=== PATIENT | male | born 1990 | race Caucasian/White ===

== ENCOUNTER 2017-07-19 02:28 | Emergency (ER) | payer OTHER ==
[2017-07-19] MEDS ORDERED: IBUPROFEN 400 MG TABLET (FP) PO ONE ×2 (03:03→03:20)
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
[2017-07-19 03:06] VITALS: BP 126/87; PULSE 86; TEMP 98.7
[2017-07-19 03:14] VITALS: BMI 23.7
== END 2017-07-19 03:59 | disposition home or self-care (01) ==
LOC: JER 02:28
DX: S80.00XA Contusion of unspecified knee, initial encounter (principal); Y93.89 Activity, other specified; Y35.891A Legal intervention involving other specified means, law enforcement official injured, initial encounter; Y92.410 Unspecified street and highway as the place of occurrence of the external cause; Y99.0 Civilian activity done for income or pay
CPT/HCPCS: 99281-25

== ENCOUNTER 2017-10-10 01:00 | Emergency (ER) | payer OTHER ==
--- NOTE | 2017-10-10 01:33 | PDOC ---
Medical Decision Making - Medical Decision Making 10/10/17 01:33 Pt seen by Midlevel Provider under my direct supervision Ancillary studies reviewed I agree with plan as outlined by Midlevel Provider 10/11/17 06:43 *DC/Admit/Observation/Transfer Diagnosis at time of Disposition: Wrist pain, left - Discharge Dispostion Disposition: HOME - Prescriptions Prescriptions: Ibuprofen [Motrin -] 600 mg PO QID #20 tablet - Referrals Referrals: Ancelmo Coelho MD [Staff Physician] - - Patient Instructions Printed Discharge Instructions: DI for Wrist Pain Additional Instructions: rest ICE and keep in splint. follow up with your doctor or occupational health for clearance to return to workfor - Post Discharge Activity Forms/Work/School Notes: Back to Work
[2017-10-10 01:48] VITALS: BP 133/91; PULSE 100; TEMP 98; BMI 26.2
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
== END 2017-10-10 04:38 | disposition home or self-care (01) ==
LOC: JER 01:00
DX: S69.82XA Other specified injuries of left wrist, hand and finger(s), initial encounter (principal); Z77.21 Contact with and (suspected) exposure to potentially hazardous body fluids; Y35.811A Legal intervention involving manhandling, law enforcement official injured, initial encounter; Y93.89 Activity, other specified; Y92.89 Other specified places as the place of occurrence of the external cause; Y99.0 Civilian activity done for income or pay
CPT/HCPCS: 73110-TC-LR-FY; 73130-TC-LR-FY; 99281-25

== ENCOUNTER 2018-06-17 05:05 | Emergency (ER) | payer OTHER ==
--- NOTE | 2018-06-17 05:12 | PDOC ---
History of Present Illness - General Stated Complaint: R KNEE PAIN/ YPD Time Seen by Provider: 06/17/18 05:11 - History of Present Illness Initial Comments: 06/17/18 05:14 28 year old man Past History - Past Medical History Allergies/Adverse Reactions: Allergies Allergy/AdvReac Type Severity Reaction Status Date / Time No Known Allergies Allergy Verified 10/10/17 01:48 Home Medications: Ambulatory Orders Ibuprofen [Motrin -] 600 mg PO QID #20 tablet 10/10/17 - Suicide/Smoking/Psychosocial Hx Smoking History: Never smoked Have you smoked in the past 12 months: No Hx Alcohol Use: No Drug/Substance Use Hx: No
[2018-06-17 05:21] VITALS: BP 128/88; PULSE 90; TEMP 98.3; BMI 23.7
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
== END 2018-06-17 06:50 | disposition home or self-care (01) ==
LOC: JER 05:05
DX: S80.01XA Contusion of right knee, initial encounter (principal); X58.XXXA Exposure to other specified factors, initial encounter; Y93.89 Activity, other specified; Y92.9 Unspecified place or not applicable; Y99.0 Civilian activity done for income or pay; Y35.891A Legal intervention involving other specified means, law enforcement official injured, initial encounter
CPT/HCPCS: 73560-TC-RT-FY; 99282-25

== ENCOUNTER 2018-07-27 01:45 | Emergency (ER) | payer OTHER ==
[2018-07-27 02:05] VITALS: BP 124/79; PULSE 80; TEMP 97.6; BMI 24.4
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
== END 2018-07-27 02:24 | disposition home or self-care (01) ==
LOC: JER 01:45
DX: M25.561 Pain in right knee (principal); M25.562 Pain in left knee; Y35.891A Legal intervention involving other specified means, law enforcement official injured, initial encounter; Y93.89 Activity, other specified; Y92.89 Other specified places as the place of occurrence of the external cause; Y99.0 Civilian activity done for income or pay
CPT/HCPCS: 99281-25

== ENCOUNTER 2018-11-15 01:53 | Emergency (ER) | payer OTHER ==
[2018-11-15 02:33] VITALS: BP 133/71; PULSE 89; TEMP 97.1; BMI 24.4
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
== END 2018-11-15 04:08 | disposition home or self-care (01) ==
LOC: JER 01:53
DX: M25.561 Pain in right knee (principal); M25.571 Pain in right ankle and joints of right foot; M79.671 Pain in right foot; Y35.891A Legal intervention involving other specified means, law enforcement official injured, initial encounter; W18.39XA Other fall on same level, initial encounter; Y93.89 Activity, other specified; Y92.89 Other specified places as the place of occurrence of the external cause; Y99.0 Civilian activity done for income or pay; J30.2 Other seasonal allergic rhinitis
CPT/HCPCS: 73610-TC-RT-FY; 73630-TC-RT-FY; 99282-25

== ENCOUNTER 2019-11-19 23:38 | Emergency (ER) | payer OTHER ==
[2019-11-19 23:43] VITALS: BP 130/87; PULSE 81; TEMP 98.2; BMI 24.4
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
== END 2019-11-19 23:59 | disposition home or self-care (01) ==
LOC: FER 23:38
DX: Z77.098 Contact with and (suspected) exposure to other hazardous, chiefly nonmedicinal, chemicals (principal)
CPT/HCPCS: 99282-25

== ENCOUNTER 2019-12-17 18:10 | Emergency (ER) | payer OTHER ==
[2019-12-17 18:35] VITALS: BP 138/89; PULSE 83; TEMP 98.3
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
== END 2019-12-17 19:16 ==
LOC: FER 18:10
DX: S69.91XA Unspecified injury of right wrist, hand and finger(s), initial encounter (principal)
CPT/HCPCS: 73140-TC-RT-FY; 99283-25

== ENCOUNTER 2020-02-07 16:41 | Emergency (ER) | payer OTHER ==
--- OUTSIDE RECORDS SUMMARY | 2020-02-07 17:13 | XMS ---
:1990 Author Organization [facility] Care Team Providers Name Role Phone Amber Lico Unavailable Unavailable Xavi Shepherd Unavailable Unavailable Sarah Unavailable Unavailable Rain RAZO MD, MD Unavailable Unavailable Nancy Unavailable Unavailable Sherman Schmidt Unavailable Unavailable Re-disclosure Warning The records that you are about to access may contain information from federally- assisted alcohol or drug abuse programs. If such information is present, then the following federally mandated warning applies: This information has been disclosed to you from records protected by federal confidentiality rules (42 CFR part 2). The federal rules prohibit you from making any further disclosure of this information unless further disclosure is expressly permitted by the written consent of the person to whom it pertains or as otherwise permitted by 42 CFR part 2. A general authorization for the release of medical or other information is NOT sufficient for this purpose. The Federal rules restrict any use of the information to criminally investigate or prosecute any alcohol or drug abuse patient.The records that you are about to access may contain highly sensitive health information, the redisclosure of which is protected by Article 27-F of the [facility] Public Health law. If you continue you may haveaccess to information: Regarding HIV / AIDS; Provided by facilities licensed or operated by the [facility] Office of Mental Health; or Provided by the [facility] Office for People With Developmental Disabilities. If such information is present, then the following [facility] mandated warning applies: This information has been disclosed to you from confidential records which are protected by state law. State law prohibits you from making any further disclosure of this information without the specific written consent of the person to whom it pertains, or as otherwise permitted by law. Any unauthorized further disclosure in violation of state law may result in a fine or mcc sentence or both. A general authorization for the release of medical or other information is NOT sufficient authorization for further disclosure. Allergies and Adverse Reactions Type Description Substance Reaction Status Data Source(s ) 3 NO KNOWN ALLERGIES Clindamycin 150 MG NEXTGEN Oral Tablet ([facility] [Clintabs[facility] - [facility] ) Drug allergy No Known Allergies No Known Allergies [facility] Encounters Encounter Providers Location Date Indications Data Source(s ) Outpatient Attender: Xavi 01/27/2020 NEXTGEN [place] 09:27:00 AM ([facility] EDT Medical - [facility] ) Outpatient Attender: Xavi 01/23/2020 NEXTGEN Scinto 03:04:00 PM ([facility] EDT [facility] - [facility] ) Outpatient Attender: 01/02/2020 NEXTGEN Alison 12:40:00 PM ([facility] McAleArleyefarleyer: EDT Medical - [place] [facility] ) Outpatient Attender: 12/15/2019 NEXTGEN Yovanny Cruz 08:50:00 AM ([facility]rel[facility]ou monty EDT [facility] ) Outpatient Attender: Lico 12/10/2019 NEXTGEN Amber 12:00:00 AM ([facility] ) Outpatient Attender: Lico 12/09/2019 NEXTGEN BurnetteReferrer: 01:30:00 PM (Kole Barfield Amber EDT Medical - [facility] ) Outpatient Attender: Lico 12/05/2019 NEXTGEN Amber 02:04:00 PM ([facility] ) Outpatient Attender: 11/18/2019 NEXTGEN Alison 10:00:00 AM ([facility] JesileArleyeferrer: EDT Medical - [facility]) Outpatient Attender: Xavi 11/06/2019 ZAKGEN Scinto 10:23:00 AM ([facility]) Outpatient Attender: 10/11/2019 NEXTGEN Alison 10:00:00 AM ([facility] DenerReferrer: [facility] Outpatient Attender: JASON 09/02/2019 ENCNTR FOR OBS FOR M Chitra RAZO MDReferrer: 09:54:00 AM SUSP EXPSR TO [facility] JASON RAZO MD EDT BIOLG AGENTS of [facility] ENCNTR FOR OBS FOR SUSP EXPSR TO [facility] BIO LG AGENTS Outpatient Attender: Xavi Shepherd 07/25/2019 12:06:00 PM NEXTGEN ([facility] Medical - [facility]) Outpatient Attender: Lico 06/24/2019 12:00:00 AM NEXTGEN ([facility] Amber EST Medical [facility] Medical [facility]) Outpatient Attender: Lico 06/19/2019 09:45:00 AM NEXTGEN ([facility]) Outpatient Attender: Xavi Shepherd 03/18/2019 11:33:00 AM NEXTGEN ([facility] EST Medical [facility] Medical [facility]) Outpatient Attender: Shmuel ROLLINS 01/19/2019 01:18:43 PM [facility] SarahAdmitter: EDT - 01/19/2019 [facility] Shmuel Smith 11:59:59 PM [facility] Patient discharged. Outpatient Attender: Lico 10/19/2018 12:00:00 AM NEXTGEN ([facility] Amber ED Medical [facility]) Outpatient Attender: Xavi Shepherd 10/05/2018 10:53:00 AM NEXTGEN ([facility] ED Medical [facility] Medical [facility]) Medications Medication Brand Start Product Dose Route Administrative Pharmacy St at Indications Reaction Description Data Name Date Form Instructions Instructions Source(s) 60 mg-120 take 1 tablet RP N EXTGEN mg 60 by oral route 2 (Ca remount mg-120 mg times every day Medical - Mt [facility]) This may be an active medication. No end date is available. Start date above may not reflect actual date the medication was s tarted. montelukast 10 MONTELUKAST 01/27/2020 TAKE 1 RP NEXTGEN MG Oral Tablet SODIUM 12:00:00 AM TABLET BY ([facility] 10 mg 10 mg EDT ORAL ROUTE Me dical - Mt EVERY DAY [facility] IN THE Group PC) EVENING This may be an active medication. No end date is available. montelukast 10 MONTELUKAST 01/23/2020 TAKE 1 RP NEXTGEN MG Oral Tablet SODIUM 12:00:00 AM TABLET BY ([facility] 10 mg 10 mg EDT ORAL ROUTE Me dical - Mt EVERY DAY [facility] IN THE Group PC) EVENING This may be an active medication. No end date is available. Sumatriptan 100 SUMATRIPTAN 12/09/2019 take 1 RP NEXTGEN MG Oral Tablet SUCCINATE 12:00:00 AM tablet by ([facility] 100 mg 100 mg EDT oral route Medical - Mt at onset of [facility] dical migraine, Group PC) may repeat in 2 hrs as needed. This may be an active medication. No end date is available. montelukast 10 MONTELUKAST 11/06/2019 TAKE 1 RP NEXTGEN MG Oral Tablet SODIUM 12:00:00 AM TABLET BY ([facility] 10 mg 10 mg EDT ORAL ROUTE Me dical - Mt EVERY DAY [facility] IN THE Group PC) EVENING This may be an active medication. No end date is available. halobetasol HALOBETASOL 10/11/2019 apply BID RP NEXTGEN propionate 0.5 PROPIONATE 12:00:00 AM for 6 weeks ([facility] MG/ML Topical EDT Medica l - Mt Cream 0.05 % [facility] edical 0.05 % Group ) montelukast 10 MONTELUKAST 07/25/2019 take 1 RP NEXTGEN MG Oral Tablet SODIUM 12:00:00 AM tablet by ([facility] 10 mg 10 mg EDT oral route Me dical - Mt every day [facility] in the Group ) evening This may be an active medication. No end date is available. mometasone MOMETASONE 07/25/2019 spray 1 RP NEXTGEN furoate 0.05 FUROATE 12:00:00 AM spray in ([facility] MG/ACTUAT Metered EDT each Me dical - Mt Dose Nasal [place] nostril [facility] 50 mcg/actuation once a day Group [facility]) 50 mcg/actuation This may be an active medication. No end date is available. montelukast 10 MONTELUKAST 03/18/2019 take 1 RP NEXTGEN MG Oral Tablet SODIUM 12:00:00 AM tablet by ([facility] 10 mg 10 mg EST oral route Me dical - Mt every day [facility] vinny in the Group PC) evening This may be an active medication. No end date is available. Clindamycin CLINDAMYCIN 02/15/2018 apply by RP NEXTGEN 0.01 MG/MG PHOSPHATE 12:00:00 AM topical ([facility] Topical Gel 1 % EDT route Med ical - Mt 1 % every day a [facility] dical thin layer Group [facility]) to the affected area(s) This may be an active medication. No end date is available. Ipratropium IPRATROPIUM 02/15/2018 spray 2 spray RP NEXTGEN [place] 0.042 BROMIDE 12:00:00 AM by intranasal ([facility] MG/ACTUAT EDT route 3 times M edical - Mt Metered Dose every day in [facility] Nasal [place] 42 each nostril Group PC) mcg (0.06 %) 42 mcg (0.06 %) This may be an active medication. No end date is available. Triamcinolone TRIAMCINOLONE 12/24/2012 apply by RP NEXTGEN Acetonide 0.001 ACETONIDE 12:00:00 AM topical ([facility] MG/MG Topical EDT route 2 Med ical - Mt Ointment 0.1 % times [facility] 0.1 % every day Group [facility]) This may be an active medication. No end date is available. 50 mcg/actuation 50 08/28/2012 spray 2 spray by RP NEXTGEN mcg/actuation 12:00:00 AM EDT intranasal route ([facility] 1 times every Medica l - Mt day in each [place] [facility] d[facility] nostril [facility]) This may be an active medication. No end date is available. Insurance Providers Payer name Policy type Policy ID Covered Covered green party's Policy P dania / Coverage green party ID relationship to Dale Inf ormation type dale OTTO Alfredo [id number] 1 [id number] Plan [place] PMA Management [id number] SP [id number] [facility] [place] [id number] SP [id number] [facility] MED.CONT.UNIT POMCO RISK [id number] SP [id number] MANAGEMENT [place] [id number] SP [id number] HEALTHCARE POMCO RISK [id number] SP [id number] MANAGEMENT Problems, Conditions, and Diagnoses Code Display Name Description Problem Type Effective Data Sour ce(s) Dates R51 Headache Acute Diagnosis 12/09/2019 NEXTGEN nonintractable 01:30:00 PM ([facility] headache, EDT Medical [facility] unspecified [facility] headache type Group [facility]) L63.9 Alopecia areata, Alopecia areata Diagnosis 11/18/2019 NEX TGEN unspecified 10:00:00 AM ([facility] EDT [facility]) Z03.818 Encounter for ENCNTR FOR OBS FOR Diagnosis 09/02/2019 [facility] observation for SUSP EXPSR TO OTH 09:54:00 AM R egional suspected BIOLG AGENTS RULED EDT Hospit al of exposure to other OUT [facility] biological agents ruled out Surgeries/Procedures Procedure Description Date Indications Data Source(s) OFFICE/OUTPATIENT OFFICE/OUTPATIENT 12/09/2019 NEXTG EN ([facility] VISIT EST VISIT EST 12:00:00 AM Medical - [facility] EDT Medical Group P C) INJECT SKIN LESIONS INJECT SKIN LESIONS 11/18/2019 N EXTGEN ([facility] </W 7 </W 7 12:00:00 AM [facility] EDT Medical Group P C) Results ID Date Data Source [id number] 09/02/2019 12:00:00 AM EDT [facility] Name Value Range Interpretation Code Description Data Heidi rce(s) Supporting Document(s ) 2019-nCoV [facility] RNA XXX DEBRA+probe- Imp This lab was ordered by [facility] SITE and reported by [employer] ID Date Data Source [id number] 01/21/2019 01:20:00 PM EDT [facility] 1990 [phone] Microbiology - Respiratory CulturesPROCE DURE: Culture,Throat RCE: Throat BODY SITE:COLLECTED DATE/TIME: 01/19/2019 13:19 EDT RECEIVED DATE/TIME: 01/19/2019 21:00 EDTSTART DATE/TIME: 01/19/2019 21:00 EDT FREE TEXT SOURCE:ORDERING PHYSICIAN: Shmuel Underwood PA-CFINAL REPORTSFinal Report []Reported Date/Time: 01/21/2019 13:20 EDT Normal upper respiratory bret isolated No beta hemolytic strep isolatedPRELIMIN AILYN REPORTSPreliminary Report []Reported Date/Time: 01/20/2019 12:58 EDTNormal uppe r respiratory bret isolated to date Continuing incubation Name Value Range Interpretation Code Description Data Heidi rce(s) Supporting Document(s ) Procedure
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
[2020-02-07 17:47] VITALS: BP 138/88; PULSE 75; TEMP 99.5; BMI 23.1
== END 2020-02-07 18:07 | disposition home or self-care (01) ==
LOC: FER 16:41
DX: H91.13 Presbycusis, bilateral (principal)
CPT/HCPCS: 99283-25

== ENCOUNTER 2020-09-08 21:43 | Emergency (ER) | payer OTHER ==
[2020-09-08 21:52] VITALS: BP 125/78; PULSE 90; TEMP 98; BMI 25.7
== END 2020-09-08 23:34 | disposition home or self-care (01) ==
LOC: FER 21:43
DX: S60.221A Contusion of right hand, initial encounter (principal)
CPT/HCPCS: 73130-TC-RT-FY; 99283-25

== ENCOUNTER 2020-09-18 23:49 | Emergency (ER) | payer OTHER ==
[2020-09-18 23:56] VITALS: BP 142/90; PULSE 87; TEMP 98.9; BMI 27.1
== END 2020-09-19 00:54 | disposition home or self-care (01) ==
LOC: JER 23:49
DX: Z77.29 Contact with and (suspected) exposure to other hazardous substances (principal)
CPT/HCPCS: 99282-25

== ENCOUNTER 2020-10-23 20:20 | Emergency (ER) | payer OTHER ==
[2020-10-23 20:58] VITALS: BP 134/85; PULSE 100; TEMP 99.3; BMI 26.4
== END 2020-10-23 22:38 | disposition home or self-care (01) ==
LOC: FER 20:20
DX: S83.411A Sprain of medial collateral ligament of right knee, initial encounter (principal); S63.617A Unspecified sprain of left little finger, initial encounter
CPT/HCPCS: 73140-TC-LT-FY; 73560-TC-RT-FY; 99284-25

== ENCOUNTER 2020-12-17 17:54 | Emergency (ER) | payer OTHER ==
[2020-12-17 18:09] VITALS: BP 146/84; PULSE 102; TEMP 98.4; BMI 27.1
== END 2020-12-17 18:25 | disposition home or self-care (01) ==
LOC: FER 17:54
DX: Z77.21 Contact with and (suspected) exposure to potentially hazardous body fluids (principal)
CPT/HCPCS: 99281-25

== ENCOUNTER 2021-03-31 20:23 | Emergency (ER) | payer OTHER ==
[2021-03-31 20:37] VITALS: BP 134/87; PULSE 82; TEMP 98.3; BMI 25.0
== END 2021-03-31 22:42 | disposition home or self-care (01) ==
LOC: JERFT 20:23
DX: S83.92XA Sprain of unspecified site of left knee, initial encounter (principal); X50.0XXA Overexertion from strenuous movement or load, initial encounter; Y35.891A Legal intervention involving other specified means, law enforcement official injured, initial encounter
CPT/HCPCS: 99281-25

== ENCOUNTER 2022-02-16 19:02 | Emergency (ER) | payer OTHER ==
[2022-02-16 19:09] VITALS: BP 114/80; PULSE 98; RESP 16; TEMP 98.6
[2022-02-16 19:29] VITALS: BMI 25.0
== END 2022-02-16 19:39 | disposition home or self-care (01) ==
LOC: FER 19:02
DX: S61.411A Laceration without foreign body of right hand, initial encounter (principal); M79.641 Pain in right hand; W26.8XXA Contact with other sharp object(s), not elsewhere classified, initial encounter
CPT/HCPCS: 99281-25

== ENCOUNTER 2022-03-10 22:11 | Emergency (ER) | payer OTHER ==
[2022-03-10 22:45] VITALS: BP 121/79; PULSE 70; RESP 18; TEMP 98.8; BMI 25.0
== END 2022-03-10 22:48 | disposition home or self-care (01) ==
LOC: FER 22:11
DX: S39.011A Strain of muscle, fascia and tendon of abdomen, initial encounter (principal); W18.40XA Slipping, tripping and stumbling without falling, unspecified, initial encounter
CPT/HCPCS: 99282-25

== ENCOUNTER 2022-04-19 20:15 | Emergency (ER) | payer BC, OTHER ==
[2022-04-19 20:27] VITALS: BP 146/87; PULSE 81; RESP 17; TEMP 98.1; BMI 25.0
== END 2022-04-19 21:22 | disposition home or self-care (01) ==
LOC: FER 20:15
DX: S00.33XA Contusion of nose, initial encounter (principal); W22.8XXA Striking against or struck by other objects, initial encounter
CPT/HCPCS: 70160-TC-FY; 99283-25

== ENCOUNTER 2022-07-03 09:18 | Emergency (ER) | payer BC, OTHER ==
[2022-07-03] MEDS ORDERED: IBUPROFEN 400 MG TABLET (FP) PO ONE ×2 (09:27→09:34)
[2022-07-03] MEDS ORDERED: KETOROLAC TROMETHAMINE 30 MG/1 ML VIAL IM ONE (09:35)
[2022-07-03] MEDS ORDERED: KETOROLAC TROMETHAMINE 60 MG/2 ML VIAL ONE (09:36)
[2022-07-03 09:49] VITALS: BP 133/93; RESP 20; TEMP 98.2; BMI 25.0
[2022-07-03 10:55] VITALS: PULSE 95
[2022-07-03] MEDS ORDERED: ACETAMINOPHEN 1000 MG/100 ML BAG IVPB ONE (12:25)
[2022-07-03] MEDS ORDERED: ACETAMINOPHEN INJECTION 100 ML IVPB ONE (12:26)
[2022-07-03 12:35] LABS: HEMATOCRIT 44.2 % (35.4-49); HEMOGLOBIN 15.3 G/dL (11.7-16.9); MCH 30.8 pg (25.7-33.7); MCHC 34.6 g/dl (32.0-35.9); MEAN PLT VOLUME 8.4 fl (7.5-11.1); RBC 4.97 10^6/uL (4.00-5.60); WHITE BLOOD COUNT 13.7 10^3/uL (4.0-10.8)
[2022-07-03 12:36] LABS: ALBUMIN 4.7 g/dl (3.4-5.0); BILIRUBIN,TOTAL 0.5 mg/dl (0.2-1); TOT PROT 7.6 g/dl (6.4-8.2)
[2022-07-03] MEDS ORDERED: SODIUM CHLORIDE 0.9% 500 ML INFUS.BAG IV ONE (13:08)
[2022-07-03 14:10] LABS: LACTIC ACID 2.2 mmol/L (0.4-2.0)
== END 2022-07-03 16:02 | disposition home or self-care (01) ==
LOC: FER 09:18
PROC: 3E033GC Introduction of Other Therapeutic Substance into Peripheral Vein, Percutaneous Approach (ICD-10-PCS; principal; 2022-07-03)
PROC: 3E023GC Introduction of Other Therapeutic Substance into Muscle, Percutaneous Approach (ICD-10-PCS; principal; 2022-07-03)
DX: S02.2XXA Fracture of nasal bones, initial encounter for closed fracture (principal); S42.002A Fracture of unspecified part of left clavicle, initial encounter for closed fracture; F10.929 Alcohol use, unspecified with intoxication, unspecified; V47.6XXA Car passenger injured in collision with fixed or stationary object in traffic accident, initial encounter
CPT/HCPCS: 36415; 70450-TC; 71046-TC-FY; 71250-TC; 72125-TC; 73000-TC-LT-FY; 73030-TC-LT-FY; 80053; 80307; 83605; 83690; 85027; 99285-25

== ENCOUNTER 2022-12-14 18:58 | Emergency (ER) | payer OTHER ==
[2022-12-14 19:45] VITALS: BP 114/72; PULSE 86; RESP 18; TEMP 98; BMI 25.0
[2022-12-14] MEDS ORDERED: LIDOCAINE 5% TOPICAL PATCH TP ONE (20:25)
[2022-12-14] MEDS ORDERED: KETOROLAC TROMETHAMINE 30 MG/1 ML VIAL IM ONE (20:25)
[2022-12-14] MEDS ORDERED: ACETAMINOPHEN 500 MG TABLET (FP) PO ONE (20:25)
[2022-12-14] MEDS ORDERED: ACETAMINOPHEN 500 MG TABLET (FP) ONE (20:33)
[2022-12-14] MEDS ORDERED: KETOROLAC TROMETHAMINE 30 MG/1 ML VIAL ONE (20:33)
[2022-12-14] MEDS ORDERED: LIDOCAINE 5% TOPICAL PATCH ONE (20:33)
[2022-12-15] MEDS ORDERED: LIDOCAINE PATCH REMOVAL MC SCH (09:00)
== END 2022-12-14 21:10 | disposition home or self-care (01) ==
LOC: JERFT 18:58 → JER 18:58 → JERFT 21:10
PROC: 3E0233Z Introduction of Anti-inflammatory into Muscle, Percutaneous Approach (ICD-10-PCS; principal; 2022-12-14)
DX: M54.50 Low back pain, unspecified (principal); V43.62XA Car passenger injured in collision with other type car in traffic accident, initial encounter; Y35.811A Legal intervention involving manhandling, law enforcement official injured, initial encounter
CPT/HCPCS: 72100-TC-FY; 99284-25

== ENCOUNTER 2024-01-25 13:17 | Emergency (ER) | payer OTHER ==
[2024-01-25 13:27] VITALS: BP 132/84; PULSE 89; RESP 16; TEMP 98.6; BMI 27.1
[2024-01-25] MEDS ORDERED: KETOROLAC TROMETHAMINE 30 MG/1 ML VIAL ONE (13:54)
[2024-01-25] MEDS ORDERED: LIDOCAINE 4% PATCH TP ONE (13:54)
[2024-01-25] MEDS: KETOROLAC TROMETHAMINE 30 MG/1 ML VIAL IM ONE (13:55)
[2024-01-25] MEDS: LIDOCAINE 4% PATCH TP ONE (13:55)
[2024-01-25] MEDS ORDERED: LIDOCAINE PATCH REMOVAL MC SCH (22:00)
== END 2024-01-25 15:15 | disposition home or self-care (01) ==
LOC: JERFT 13:17
PROC: 3E0133Z Introduction of Anti-inflammatory into Subcutaneous Tissue, Percutaneous Approach (ICD-10-PCS; principal; 2024-01-25)
DX: M25.562 Pain in left knee (principal)
CPT/HCPCS: 96372; 99284-25